=== PATIENT | male | born 1955 | race Caucasian/White ===

== ENCOUNTER 2023-01-13 20:11 | Emergency (ER) | payer SELFPAY ==
[~2023-01-13] VITALS: Ht 167.6 cm; Wt 60.0 kg
[2023-01-13 20:13] VITALS: O2SAT 98
[2023-01-14] MEDS ORDERED: FENTANYL CITRATE/PF 50MCG/ML 2ML VIAL IV ONE (02:30)
[2023-01-14] MEDS ORDERED: PROPOFOL 200MG/20ML VIAL IV ONE (02:30)
[2023-01-14] MEDS ORDERED: IBUP-2029 MT (04:39)
[2023-01-14 09:15] VITALS: BP 140/80; PULSE 75; RESP 17; TEMP 98.5
== END 2023-01-14 08:45 | disposition home or self-care (01) ==
LOC: ER 20:11
DX: M25.512 Pain in left shoulder (principal); Z86.73 Personal history of transient ischemic attack (TIA), and cerebral infarction without residual deficits
CPT/HCPCS: 99285; 23650; 73030 ×2; 73060; 73080; 99152; J3010; J2704